=== PATIENT | female | born 1990 | race Caucasian/White ===

== ENCOUNTER 2021-08-03 14:31 | Emergency (ER) | payer MEDICAID ==
[~2021-08-03] VITALS: Ht 172.7 cm; Wt 86.0 kg
[2021-08-03 14:35] VITALS: BP 119/63
[2021-08-03] MEDS ORDERED: ONDANSETRON 4MG ODT PO ONE (15:00)
[2021-08-03 15:24] LABS: BASOPHILS % 0.4 % (0.0-2.0); EOSINOPHILS % 0.1 % (0.0-5.0); HEMATOCRIT. 39.8 % (36.0-48.0); HEMOGLOBIN. 13.1 g/dL (12.0-16.0); MEAN CORPUSCULAR HEMOGLOBIN 27.4 pg (28.0-32.0); MEAN CORPUSCULAR VOLUME 83.2 fL (81.0-99.0); MEAN PLATELET VOLUME 7.1 fl (7.4-10.4); MONOCYTES % 3.9 % (2.0-8.0); NEUTROPHILS % 81.6 % (40.0-76.0); PLATELET 403 x1000/uL (130-400); RED BLOOD CELL COUNT 4.79 mill/uL (4.2-5.4)
[2021-08-03 15:25] LABS: CHLORIDE 110 mEq/L (98-107)
[2021-08-03 15:49] LABS: HCG SCREEN NEGATIVE
[2021-08-03] MEDS ORDERED: VISCOUS LIDOCAINE 2% 15 ML UDC PO STA (16:24)
[2021-08-03] MEDS ORDERED: MAGNESIUM/ALUMINUM HYDROXIDE/SIMETHICONE 30ML UDC PO STA (16:24)
[2021-08-03] MEDS ORDERED: PANTOPRAZOLE 40MG DR TABLET PO ONE (16:30)
[2021-08-03 16:51] LABS: HCG SCREEN NEGATIVE
[2021-08-03] MEDS ORDERED: ONDA8TAB13 MT (17:43)
[2021-08-03] MEDS ORDERED: PROT40 MT (17:43)
[2021-08-03] MEDS ORDERED: IBUP-2029 MT (17:43)
[2021-08-03 17:59] LABS: CLARITY URINE CLOUDY (CLEAR); COLOR URINE YELLOW (YELLOW); KETONES URINE TRACE (NEGATIVE); LEUKOCYTE ESTERASE URINE TRACE (NEGATIVE); NITRITE URINE POSITIVE (NEGATIVE); OCCULT BLOOD URINE 1+ (NEGATIVE); PROTEIN URINE TRACE (NEGATIVE); SPECIFIC GRAVITY URINE 1.024 (1.005-1.030); UROBILINOGEN URINE 0.2 E.U./dL (0.2-1.0)
[2021-08-03 18:32] LABS: *AMPHETAMINES SCREEN URINE NEGATIVE (NEGATIVE); *BARBITURATES SCREEN URINE NEGATIVE (NEGATIVE); *BENZODIAZEPINES SCREEN URINE NEGATIVE (NEGATIVE); *COCAINE SCREEN URINE NEGATIVE (NEGATIVE); METHADONE URINE SCREEN NEGATIVE (NEGATIVE); OPIATES URINE SCREEN NEGATIVE (NEGATIVE); PHENCYCLIDINE URINE SCREEN NEGATIVE (NEGATIVE)
[2021-08-03 18:33] LABS: CANNABINOID URINE SCREEN PRESUMTIVE POSITIVE (NEGATIVE)
== END 2021-08-03 18:01 | disposition home or self-care (01) ==
LOC: ER 14:31
DX: K80.20 Calculus of gallbladder without cholecystitis without obstruction (principal); F12.10 Cannabis abuse, uncomplicated
CPT/HCPCS: 36415; 76705; 80053; 80305; 80320; 81003; 83690; 84703; 85025; 99284; Q0162; G0480